=== PATIENT | male | born 1975 | race Caucasian/White ===

== ENCOUNTER 2018-09-25 05:57 | Day surgery (SDC) | payer OTHER ==
--- NOTE | 2018-09-17 16:28 | HP ---
HISTORY AND PHYSICAL: DATE OF ADMISSION/SURGERY: 09/25/18 DATE OF OFFICE VISIT: 09/17/18 SURGEON: Stacy Lim MD * (DICTATED BY MILTON RUSSELL) PROCEDURE: Left knee arthroscopy with ACL reconstruction with allograft. CHIEF COMPLAINT: Left knee pain. HISTORY OF PRESENT ILLNESS: Rafa is a 43-year-old gentleman with continued complaints of left knee pain who continues to have pain and some instability of the left knee. He has elected to proceed with surgery to reconstruct the ACL with allograft. PAST MEDICAL HISTORY: GERD and chronic low back pain. PAST SURGICAL HISTORY: Lumbar fusion, dorsal stimulator implant and left knee arthroscopy. CURRENT MEDICATIONS: 1. Methadone 10 mg 2 tabs in the morning, 1 mid-day and 2 at night. 2. Prazosin 5 mg daily. 3. Mirtazapine 15 mg q.h.s. 4. Tylenol as needed. 5. Colace as needed. 6. MiraLAX as needed. 7. Tums 500 mg as needed. 8. Fluoxetine 40 mg daily. 9. Zofran 8 mg every 8 hours as needed. 10. Buspirone 10 mg twice a day. 11. Esomeprazole 20 mg daily. ALLERGIES: No known drug allergies. FAMILY HISTORY: Diabetes and coronary artery disease. SOCIAL HISTORY: A 43-year-old gentleman who lives with children. He does not smoke, use drugs or alcohol. REVIEW OF SYSTEMS: A complete 14-point review of systems was reviewed with the patient. It was positive for GERD. He denies history of DVT, PE, hepatitis, HIV , or anesthesia problems. PHYSICAL EXAMINATION GENERAL: He is well developed, well nourished, in no acute distress. VITAL SIGNS: He stands 67 inches tall, 237 pounds. His blood pressure is 138/ 84 and his heart rate is 72. HEENT: Normocephalic, atraumatic. NECK: Supple. No palpable lymph nodes. PULMONARY: The lungs are clear to auscultation bilaterally. CARDIO: Regular rate and rhythm. Strong S1, S2. ABDOMEN: Soft, nontender, nondistended. NEUROLOGICAL: He is alert and oriented x3. MUSCULOSKELETAL: Left lower extremity, the skin is intact. There are no open wounds or abrasions. He walks with quad sparing gait with slightly antalgic- type gait favoring the left knee. He has some tenderness over the medial joint line. He has positive Ximena's. Negative posterior drawer. Range of motion 0 to 130 degrees of flexion. He has 2+ dorsalis pedis pulse. Intact sensation. His lower extremity muscle group strengths are intact at 5/5. ASSESSMENT AND PLAN: Rafa is a 43-year-old gentleman with an ACL tear. He has elected to proceed with left knee arthroscopy with ACL reconstruction with allograft. The surgery is scheduled for 09/25/[address] Lim discussed the risks and benefits of the surgery at today's visit and all of his questions were answered. He will follow with Dr. Lim 6 to 8 days after the surgery. MILTON RUSSELL [id number]/[facility] #: [id number] MTDD
[~2018-09-25 05:57] MED LIST: Buffered Lidocaine 0.9% SYRIN* 5 ML/SYR SYRINGE INTRADERM ONE
[2018-09-25] MEDS ORDERED: Dexamethasone IV* 4 MG/ML 1 ML (4 MG) IV SLOW PU ONE (06:00)
[2018-09-25] MEDS ORDERED: Gabapentin CAP(*) 300 MG PO ONE (06:00)
[2018-09-25] MEDS ORDERED: Famotidine IV* 10 MG/ML 2 ML (20 mg) IV ONE (06:00)
[2018-09-25] MEDS ORDERED: Famotidine IV* 10 MG/ML 2 ML (20 mg) ONE (06:33)
[2018-09-25] MEDS ORDERED: ceFAZolin 2 GM PREMIX in ORs 2 GM/50 ML BAG IVPB ONE (06:33)
[2018-09-25] MEDS ORDERED: Dexamethasone IV* 4 MG/ML 1 ML (4 MG) ONE (06:33)
[2018-09-25] MEDS ORDERED: Gabapentin CAP(*) 300 MG ONE (06:33)
[2018-09-25] MEDS ORDERED: Midazolam* 1 MG/ML 5 ML VIAL (5 MG) ONE (07:03)
[2018-09-25] MEDS ORDERED: Lidocaine 2% PF * 5 ML VIAL ONE (07:03)
[2018-09-25] MEDS ORDERED: Propofol* 10 MG/ML 20 ML BTL ONE (07:03)
[2018-09-25] MEDS ORDERED: fentaNYL* 50 MCG/ML 5 ML VIAL (250 MCG VIAL) ONE (07:04)
[2018-09-25] MEDS ORDERED: Ropivacaine* 2 MG/ML 20 ML VIAL (0.2%) ONE (07:30)
[2018-09-25] MEDS ORDERED: Lidocaine 1% MPF wEPI 200,000* 30 ML SDV ONE (07:30)
[2018-09-25] MEDS ORDERED: KETAMINE HCL* 50 MG/ML 10 ML VIAL ONE (07:46)
[2018-09-25] MEDS ORDERED: Ketorolac INJ* 30 MG/ML 1 ML VIAL ONE (07:46)
[2018-09-25] MEDS ORDERED: Naloxone* 0.4 MG/ML 1 ML VIAL IV PRN (08:08)
[2018-09-25] MEDS ORDERED: Morphine VIAL* 4 MG/ML VIAL (1 ml vial) IV PRN (08:08)
[2018-09-25] MEDS ORDERED: fentaNYL* 50 MCG/ML 2 ML VIAL (100 MCG VIAL) ONE ×4 (08:21→10:56)
[2018-09-25] MEDS ORDERED: Ondansetron INJ* 2 MG/ML VIAL ONE (08:32)
[2018-09-25] MEDS ORDERED: oxyCODONE/Acetamin 5/325 MG* TAB ONE ×2 (10:03→10:57)
[2018-09-25] MEDS: oxyCODONE/Acetamin 5/325 MG* TAB PO PRN ×2 (10:06→10:58)
[2018-09-25] MEDS: fentaNYL* 50 MCG/ML 2 ML VIAL (100 MCG VIAL) IV PRN ×5 (10:06→10:58)
[2018-09-25 10:56] VITALS: BP 139/90
--- NOTE | 2018-09-25 15:27 | OP ---
CC: PCP, Di Barbour MD * DATE OF OPERATION: 09/25/18 - [facility] DATE OF : 71 SURGEON: Stacy Lim MD ANALYTICS ARCHITECT: MILTON Sánchez ANESTHESIOLOGIST: Dr. Storey. ANESTHESIA: General. PRE-OP DIAGNOSIS: Left knee grade 3 anterior cruciate ligament rupture. POST-OP DIAGNOSIS: Left knee grade 3 anterior cruciate ligament rupture with medial femoral condyle chondrosis and medial meniscus tear. OPERATIVE PROCEDURE: 1. Left knee arthroscopy with ACL reconstruction using allograft. 2. Partial medial meniscectomy. 3. Removal of loose body. 4. Medial femoral condyle chondroplasty. COMPLICATIONS: None. ESTIMATED BLOOD LOSS: Minimal. IMPLANTS USED: [employer] SoftSilk 7 x 20 and 9 x 25. TOURNIQUET TIME: Zero minutes. INDICATIONS: Rafa Major is a 43-year-old male who has had longstanding knee instability and discomfort. He was diagnosed with an ACL injury years ago. He reinjured it and started having instability. He had persistent discomfort. He has failed conservative management. He has elected to proceed with surgical treatment. Risks and benefits were discussed at length including, but not limited to, bleeding, infection, damage to nerves, vessels, surrounding structures, wound nonhealing, persistent pain, need for further surgery, scarring, stiffness, incomplete relief of symptoms, risks of anesthesia, and risk of DVT. DESCRIPTION OF PROCEDURE: The patient was greeted in the preoperative area by the attending surgeon. Correct extremity was marked and consent was confirmed. The patient was brought back to the operating suite, where he was placed in supine position on the operating table. He then underwent general anesthesia and LMA intubation, after which he was appropriately positioned on the bed. The lateral post was positioned. A nonsterile tourniquet was placed high on the proximal thigh. A beanbag was placed to get the knee at 90 degrees. The left leg was then prepped and draped in the usual sterile fashion beginning with Chlorhexidine soap, scrub, and alcohol wipe and a final prep of ChloraPrep. After appropriate surgical pause indicating site, side, procedure, administration of antibiotics, the knee was intra-articularly injected with 1% lidocaine with epi. The anterolateral portal was made sharply with an 11-blade. Scope was introduced into the joint, joint was examined. There was significant synovitis that was present. There was evidence of grade 3 rupture of the ACL. Anteromedial portal was then made using an 18-gauge needle for needle localization. The shaver was used to debride back the abundant synovitis. There was a large plica as well. There was a loose body that was identified and that was about 5 mm that was removed using the shaver and the biter. The ACL was found to be completely torn off the femoral insertion and scarred to the PCL. The pieces were then carefully elevated and debrided back using jcarlos and biters. Electrocautery was used to maintain hemostasis at all times. Attention was then directed to the patellofemoral joint. The trochlea had grade 0 changes. The patella had small area of grade 2 changes, debrided back using the shaver. The medial and lateral gutters were intact. After the medial plica was removed, the medial gutter was visualized and found to be intact. The scope was placed in the medial compartment. There was an area of grade 2 changes with unstable flaps. This was debrided back using shaver. The medial meniscus had evidence of previous partial meniscectomy, but there was some tearing at the root. This was debrided back using the shaver. The medial plateau had grade 0 to 1 changes. The lateral compartment was examined. The lateral femoral condyle and lateral plateau had grade 0 to 1 changes. The lateral meniscus had no obvious fraying. A second loose body was removed, this was smaller. The knee was then placed to 90 degrees. The lateral wall was then prepared using the shaver and electrocautery device. The starting awl was then used to provisionally jeancarlos the lateral femoral condyle and used as a reference point for the femoral tunnel. The scope was changed position to make sure that it was appropriately placed. Attention was then directed to the tibial tunnel. The tip-to-tip guide was placed in the center of the tibial footprint. Then, a 15- blade was used to make a separate incision for placement of the tibial tunnel. After this was done, the guidewire was placed in the center of the footprint and drilled with a size 10 mm full-bore reamer based on the preoperative graft size. The patient used allograft. At the beginning of the case, the graft was being prepared by the ambulance assistant on the back table and placed on the back table with 15 pounds of tension as it was an allograft. Once the tunnel was drilled, all excess bony debris was removed, the tunnel was then rasped for easier passage of the graft. Care was placed to prevent fluid egress. The attention was directed to the femoral tunnel. The straight guide placed by [employer]man [employer] Nephew in the center of the footprint. The knee was then hyperflexed, after which the Beath pin was placed in the center of the footprint and then drilled bicortically through the IT band and to the skin. Once the appropriate position was identified, a 9 mm low profile reamer was then drilled to a depth of about 25 mm based on the graft 9 x 25 mm and the graft was found to be about 22 mm in length. The excess bone and debris was removed. The tunnel was then carefully notched. The tunnel was examined and found to be appropriately placed. At this point, a #2 Ethibond suture was placed through the eyelet of the Beath pin and advanced through the lateral thigh and then brought antegrade through the tibial tunnel. The graft was then brought to the field by the attending surgeon and passed under direct and arthroscopic visualization to be well seated in the femoral tunnel. This was secured with a size 7 x 20 mm SoftSilk screw with excellent purchase. The knee was then cycled approximately 20 times to remove any creep from the graft. The knee was then brought back to 90 degrees. The scope was brought back to the joint and the graft was in good position. The knee was then placed in about 20 to 30 degrees of flexion with tension on tibial sutures and posterior drawer. The tibial tunnel was secured with a 9 x 25 mm screw with okay purchase. The knee was then taken through full range of motion, found to have a stable Ximena. The scope was brought back to the joint, found to have the graft had not changed. There was no evidence of impingement anteriorly. The final images were obtained. The wounds were copiously irrigated with sterile saline. Excess bone block from the allograft on the tibial surface was removed using the shaver and the rongeur. The wounds were copiously irrigated. Portals were closed with 3-0 nylon, skin with 2-0 Vicryl and 3-0 Monocryl. The knee was intra- articularly injected with 0.2% ropivacaine. Sterile dressings were applied. A Cryo/Cuff and a hinged knee brace. He was awoken from anesthesia and transferred to PACU in stable condition. POSTOPERATIVE PLAN: He will be weightbearing as tolerated in the brace. He will be discharged on pain medication. DVT prophylaxis was considered, but deferred due to no previous personal or family history. He will be discharged on antibiotics. I will see the patient back in 6 to 8 days. He will start therapy within the first week. [id number]/[facility] #: [id number] MTDD
== END 2018-09-25 15:20 | disposition home or self-care (01) ==
LOC: OR 05:57
PROVIDERS: ATTEND Orthopaedic Surgery
DX: M23.612 Other spontaneous disruption of anterior cruciate ligament of left knee (principal); K21.9 Gastro-esophageal reflux disease without esophagitis; Z79.899 Other long term (current) drug therapy
CPT/HCPCS: A9270-GY; C1713; C1776; J0690; J1100; J1885; J2001; J2250; J2405; J2704; J2795; J3010